=== PATIENT | female | born 1945 | race Caucasian/White ===

== ENCOUNTER → 2019-07-23 | Outpatient (CLI) | payer OTHER ==
[~2019-07-23] VITALS: Ht 152.4 cm; Wt 71.0 kg
[2019-07-23] VITALS (9 sets, daily range): BP systolic 118–188; BP diastolic 40–58
[~2019-07-23] MED LIST: ASPIR 8181 MG PO; FOSAMAX 70 MG T70 MG PO; LOPRESSOR25 PO; NITROGLYCERIN0.4 MG SUBLING; SUPER B-COMPL400 MCG PO; VITAMIN D5000 UNIT PO
[2019-07-23 10:06] LABS: HEMOGLOBIN 13.5 gm/dL (12.0-15.0); MCHC 33.7 g/dL (28.0-37.0); MCV 88.9 fL (80.0-100.0); MPV 8.2 fl. (7.2-11.1); RBC 4.5 mil/uL (4.20-5.00); RDW-CV 13.3 % (10.5-14.5); WBC 8.9 thou/uL (4.0-11.0)
[2019-07-23 10:17] LABS: ANION GAP 13 mmol/L (7-16); BUN 18 mg/dL (7-18); CALCIUM 9.1 mg/dL (8.5-10.1); CHLORIDE 103 mmol/L (98-107); CO2 23 mmol/L (21-32); GLUCOSE 103 mg/dL (70-99); POTASSIUM 4.3 mmol/L (3.5-5.1); SODIUM 139 mmol/L (136-145)
[2019-07-23 10:18] LABS: SERUM ASSESSMENT Clear
[2019-07-23 10:19] LABS: APTT 28.9 Seconds (25.0-31.3); PROTIME 10.1 Seconds (9.20-11.50)
--- NOTE | 2019-07-23 12:04 | EKG ---
[place] [address] ELECTROCARDIOGRAM REPORT Name: KATYVIRIDIANA Room: [facility]#: [id number] Admission: 07/23/19 Attend Phys: Louis Coto MD, Discharge: Date of : 47 Report #: [id number] THIS REPORT FOR: //name// [facility] Test Date: 2019-07-23 Test Time: 10:28:59 Pat Name: VIRIDIANA BURNS Department: Room: Gender: F Block Feeder: : 1945 Requested By: Louis Coto Order Number: [id number] Reading MD: Louis Coto Measurements Intervals [place] Rate: 63 P: -6 CT: 174 QRS: 31 QRSD: 91 T: 54 QT: 421 QTc: 431 Interpretive Statements Sinus rhythm No previous ECG available for comparison Electronically Signed On 07-23-2019 12:04:29 CDT by Louis Coto [email or web address] <ELECTRONICALLY SIGNED> By: Louis Coto MD, [facility] 07/23/19 1204 1028 1028 Louis Coto MD, FACC /EPI
--- NOTE | 2019-07-23 13:42 | CARD ---
[address] [address] CARDIAC CATH REPORT Name: VIRIDIANA BURNS Room: [facility]#: [id number] Admission: 07/23/19 Attend Phys: Louis Coto MD, Discharge: Date of : 47 Report #: [id number] THIS REPORT FOR: //name// APPROVED REPORT Study performed: 07/23/2019 10:32:09 Patient Details The patient is a 73 year-old female Event Personnel Louis Coto Certified Master Locksmith, Stephie Tenorio RN Chief Radiation Therapist, Burke Ken SPINNING MACHINE OPERATOR Scrub, Camille Jaimes RTR Monitor, Hazel Reyes RN Chief Radiation Therapist, Dale العراقي SPINNING MACHINE OPERATOR Monitor Procedures Performed Left Heart Cath Coronaries, Bypass Grafts [id number] [facility] Indication Positive stress test Risk Factors Hypercholesterolemia, Hypertension Previous Procedures/Diagnoses Previous CABGPrevious PCI Procedure Narrative The patient was brought electively to the Cardiac Catheterization Laboratory and was prepped and draped in a sterile manner. The right femoral was infiltrated with 2% Lidocaine subcutaneous anesthesia. A [place] 6 FR sheath was inserted into the RFA. Coronary angiography was performed using coronary diagnostic catheters. The right coronary system was accessed and visualized with a JR 4 6F catheter. The left coronary system was accessed and visualized with a JL 3.5 6F catheter. The left ventricle was accessed and visualized with a Straight Pig 6F catheter. Left ventricular/Aortic Valve gradient assessed via catheter pullback. Left ventriculogram was performed in [place] projection. Pre-demployment femoral angiogram was performed . Closure device was deployed with a Fr MynxGrip 6/7F. The patient tolerated the procedure well and there were no complications associated with the procedure. There was no hematoma. Intraoperative Conscious [place] [address] CARDIAC CATH REPORT Name: VIRIDIANA BURNS Room: [facility]#: [id number] Admission: 07/23/19 Attend Phys: Lousi Coto MD, Discharge: Date of : 47 Report #: [id number] Sedation start time: 1108 Case end Time: 1129 Fentanyl 50 mcg Versed 3 mg Fluoro Time: 4.3 minutes Dose: DAP 52726 cGycm2 289 mGy Contrast Type and Amount: Visipaque 80 ml Coronary Angiography The patient's coronary anatomy is right dominant. [facility] Artery Percent Stenosis #1 patent POPE graft to the LAD with collateral filling of the right coronary artery from the LAD system; there is 40% narrowing of the midportion of the graft to the LAD #2 total occlusion of the previously constructed vein graft to the right coronary artery at its ostium Diagnostic Cath Left Main 0% narrowing LAD 100% proximal occlusion Circumflex Nondominant vessel with 20% proximal narrowing Right Coronary Dominant vessel which is totally occluded in its midportion Left Ventriculography The left ventricle is normal in size with normal contractility. The left ventricular ejection fraction is estimated to be 65%. Left ventricular wall motion abnormalities are not present. There is no mitral insufficiency. Hemodynamics The aortic pressure is 160/49 mmHg with a mean of 88 mmHg. The left ventricular pressure is 151/-2 mmHg with a mean of mmHg. The left ventricular end diastolic pressure is 7 mmHg. Conclusion #1 significant coronary artery disease characterized by the following: A 100% proximal LAD occlusion B 20 percent narrowing of the proximal portion of the nondominant [place] [address] CARDIAC CATH REPORT Name: VIRIDIANA BURNS Room: [facility]#: [id number] Admission: 07/23/19 Attend Phys: Louis Coto MD, Discharge: Date of : 47 Report #: [id number] C total occlusion of the dominant right coronary artery in its midportion #2 graft study characterized by the following: A patent POPE graft to the LAD with 40% mid graft narrowing and with collateral filling from the LAD to the distal right coronary artery through the septum B total occlusion of the previously constructed saphenous vein graft the right coronary artery at its ostium Diagnostic Cath Approved by: Louis Coto MD Date/Time: 07/23/2019 13:40:52 <ELECTRONICALLY SIGNED> By: Louis Coto MD, [facility] 07/23/19 1342 1342 1342Joshelly Coto MD, FACC /INF
[2019-07-23 18:08] LABS: CHOLESTEROL 315 mg/dL (<200); HDL CHOLESTEROL 41 mg/dL (>40); LDL CHOLESTEROL 202 mg/dL (<100); TC:HDL 7.7 Ratio (Not establshd); TRIGLYCERIDE 361 mg/dL (<150); VLDL 72 mg/dL (<40)
== END | disposition home or self-care (01) ==
LOC: M.CL 08:49
PROVIDERS: Internal Medicine
DX: I25.10 Atherosclerotic heart disease of native coronary artery without angina pectoris (principal); E78.5 Hyperlipidemia, unspecified; M85.80 Other specified disorders of bone density and structure, unspecified site; F17.210 Nicotine dependence, cigarettes, uncomplicated; Z79.82 Long term (current) use of aspirin; Z79.899 Other long term (current) drug therapy; Z79.01 Long term (current) use of anticoagulants